=== PATIENT | female | born 1930 | race Caucasian/White ===

== ENCOUNTER 2016-10-04 06:29 | Day surgery (SDCO) | payer MEDICARE, OTHER ==
[~2016-10-04] VITALS: Ht 165.1 cm; Wt 59.6 kg
[~2016-10-04 06:29] MED LIST: ACETAMINOPHEN325 MG PO; ATENOLOL25 MG PO; BIOTIN1 MG PO; CERTAGEN1 EACH PO; CRESTOR20 MG PO; ECOTRIN81 MG PO; IMODIUM2 MG PO; LACTINEX1 EACH PO; LEVAQUIN250 MG PO; OCUVITE PO; OSTEO BI-FLEX1 EAC1 PO; PRINIVIL20 MG PO; ROBITUSSIN DM10 ML PO; TRAMADOL HCL50 MG PO; ZYRTEC10 MG PO
[2016-10-04 07:51] LABS: BASOPHIL 0.4 % (0-2); EOSINOPHIL 4.7 % (0-7); LYMPHOCYTE 15.7 % (15-48); MCH 31.2 pg (25.0-31.0); MCHC 33.3 g/dL (32.0-36.0); MCV 93.5 fL (78.0-100.0); MONOCYTE 13.3 % (0-12); MPV 9.1 fL (6.0-9.5); NEUTROPHIL 65.9 % (41-80); PLT 174 K/uL (150-400); RBC 3.85 M/uL (4.20-5.40); RDW 12.9 % (11.5-14.0); WBC 5.1 K/uL (4.0-10.5)
[2016-10-04 08:08] LABS: ALBUMIN 3.8 g/dL (3.4-4.8); BILIRUBIN - TOTAL 0.4 mg/dL (0.1-1.0); CREATININE 1.7 mg/dL (0.5-1.0); GLOBULIN (CALCULATION) 2.3 g/dL (2.2-4.2); POTASSIUM 5.3 mmol/L (3.5-5.1); TOTAL PROTEIN 6.1 g/dL (6.4-8.3)
[2016-10-05 06:20] LABS: BASOPHIL 0 % (0-2); EOSINOPHIL 0 % (0-7); HCT 35.1 % (37.0-47.0); HGB 11.7 g/dl (12.5-16.0); LYMPHOCYTE 14.7 % (15-48); MCHC 33.3 g/dL (32.0-36.0); MCV 93.1 fL (78.0-100.0); MONOCYTE 0.9 % (0-12); MPV 9.2 fL (6.0-9.5); NEUTROPHIL 84.4 % (41-80); PLT 174 K/uL (150-400); RBC 3.77 M/uL (4.20-5.40); RDW 12.9 % (11.5-14.0)
[2016-10-05 06:21] LABS: WBC 3.5 K/uL (4.0-10.5)
[2016-10-05 06:32] LABS: CREATININE 1.2 mg/dL (0.5-1.0); POTASSIUM 4.9 mmol/L (3.5-5.1)
[2016-10-05] MEDS ORDERED: NORVASC10 MG PO (17:23)
[2016-10-05] MEDS ORDERED: ANTIVERT12.5 MG PO (17:24)
[2016-10-05] MEDS ORDERED: PROBIOTIC1 EAC1 PO (17:24)
[2016-10-05] MEDS ORDERED: AUGMENTIN 875-1 EACH PO (17:24)
== END 2016-10-05 19:08 | disposition home or self-care (01) ==
LOC: FER 06:29 → FMS 12:24
PROVIDERS: Emergency Medicine; ADMIT Internal Medicine
DX: R42 Dizziness and giddiness (principal); J32.1 Chronic frontal sinusitis; E87.5 Hyperkalemia; N17.9 Acute kidney failure, unspecified; I10 Essential (primary) hypertension; E78.5 Hyperlipidemia, unspecified; M50.30 Other cervical disc degeneration, unspecified cervical region; M51.36 Other intervertebral disc degeneration, lumbar region; N28.9 Disorder of kidney and ureter, unspecified; Z88.2 Allergy status to sulfonamides; Z79.899 Other long term (current) drug therapy
CPT/HCPCS: 36415; 70450; 71010; 80048; 80053; 84484; 85025; 93005; 97161; 97165; 97530; 97535; G0378; J2930